=== PATIENT | male | born 1980 | race Caucasian/White ===

== ENCOUNTER 2020-01-23 19:36 | Observation (INO) | payer OTHER ==
[2020-01-23] MEDS ORDERED: ASPIRIN 81 MG CHEWABLE TABLET ONE (20:09)
[2020-01-23 20:10] LABS: Protime INR 0.99
[2020-01-23] MEDS ORDERED: NITROGLYCERIN 0.4 MG/TAB SL ONE (20:10)
[2020-01-23 20:13] LABS: Absolute Lymphocytes (CBC) 2.8 K/uL (0.7-4.9); Basophils % 0.5 % (0-1.3); Hematocrit 48.7 % (39.6-49.0); Lymphocytes % 25.6 % (15.3-44.8); MPV 9.4 fL (7.6-11.3); RBC Red Blood Cell Count 5.57 M/uL (4.33-5.43)
--- NOTE | 2020-01-23 20:13 | RAD REPORT ---
EXAM DESCRIPTION: RAD - Chest Single View - 01/23/2020 8:06 pm CLINICAL HISTORY: CHEST PAIN Chest pain. COMPARISON: CHEST PA AND LAT 2 VIEW dated 06/09/2009; CHEST SINGLE VIEW dated 04/16/2005 FINDINGS: Portable technique limits examination quality. The lungs are grossly clear. The heart is normal in size. No displaced fractures. IMPRESSION: No acute intrathoracic process suspected.
[2020-01-23 20:26] LABS: ALT/SGPT 42 U/L (12-78); AST/SGOT 19 U/L (15-37); Alkaline Phosphatase 74 U/L (45-117); BUN Blood Urea Nitrogen 16 mg/dL (7-18); Bicarbonate 30 mmol/L (21-32); Bilirubin Direct 0.1 mg/dL (0-0.2); Bilirubin Total 0.3 mg/dL (0.2-1.0); Glucose Level 103 mg/dL (74-106); NT PRO-BNP 5 pg/mL (<125); Potassium 3.4 mmol/L (3.5-5.1); Protein, Total 8.4 g/dL (6.4-8.2); Sodium Level 137 mmol/L (136-145); Troponin (Emerg Dept Use Only) < 0.02 ng/mL (0.0-0.045)
--- NOTE | 2020-01-23 21:16 | ER ---
Nurse's Notes [facility] Name: Dash Echols Age: 39 yrs Sex: Male : 1980 Arrival Date: 01/23/2020 Time: 19:41 Bed 20 Private MD: Diagnosis: Chest pain, unspecified Presentation: 01/22 19:41 Chief complaint: Patient states: Radiating chest pain started 30 mins ago. Reports SOB ca1 with chest pains. 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 Coronavirus screen: Patient denies fever greater than 100.4F, cough, shortness of breath, or difficulty breathing. Proceed with normal triage process. Ebola Screen: Patient negative for fever greater than or equal to 101.5 degrees Fahrenheit, and additional compatible Ebola Virus Disease symptoms Patient denies exposure to infectious person. Patient denies travel to an Ebola-affected area in the 21 days before illness onset. No symptoms or risks identified at this time. Initial Sepsis Screen: Does the patient meet any 2 criteria? No. Patient's initial sepsis screen is negative. Does the patient have a suspected source of infection? No. Patient's initial sepsis screen is negative. Risk Assessment: Do you want to hurt yourself or someone else? Patient reports no desire to harm self or others. Onset of symptoms was January 23, 2020 at 19:10. 19:41 Method Of Arrival: Wheelchair ca1 19:41 Acuity: RONNELL 3 ca1 Historical: - Allergies: 19:46 No Known Allergies; ca1 - Home Meds: 19:46 Losartan-Potassium 100mg-25mg 1 tab [Active]; unknown anti cholesterol medication ca1 [Active]; - PMHx: 19:46 Hypertension; High Cholesterol; PE; Liver Laceration; Free Floating L lung; ca1 - PSHx: 19:46 Appendectomy; bilateral hip reconstruction; ca1 - Immunization history:: Adult Immunizations up to date, Flu vaccine is not up to date. - Social history:: Smoking status: Patient denies any tobacco usage or history of. Screenin:41 Abuse screen: Denies threats or abuse. Nutritional screening: No deficits noted. jb4 Tuberculosis screening: No symptoms or risk factors identified. Fall Risk None identified. Assessment: 19:41 General: Appears in no apparent distress. uncomfortable, Behavior is calm, cooperative, jb4 appropriate for age. Pain: Complains of pain in right breast Pain does not radiate. Pain currently is 2 out of 10 on a pain scale. Quality of pain is described as dull, Pain began 30 min ago. Neuro: Level of Consciousness is awake, alert, obeys commands, Oriented to person, place, time, situation. Cardiovascular: Patient's skin is warm and dry. Rhythm is sinus tachycardia. Respiratory: Airway is patent Respiratory effort is even, unlabored, Respiratory pattern is regular, symmetrical. GI: No signs and/or symptoms were reported involving the gastrointestinal system. : No signs and/or symptoms were reported regarding the genitourinary system. EENT: No signs and/or symptoms were reported regarding the EENT system. Derm: Skin is intact, Skin is pink, warm \T\ dry. Musculoskeletal: Circulation, motion, and sensation intact. Range of motion: intact in all extremities. 20:30 Reassessment: Patient appears in no apparent distress at this time. Patient and/or jb4 family updated on plan of care and expected duration. Pain level reassessed. Patient is alert, oriented x 3, equal unlabored respirations, skin warm/dry/pink. Patient states feeling better. 22:45 Reassessment: Patient appears in no apparent distress at this time. Patient and/or jb4 family updated on plan of care and expected duration. Pain level reassessed. Patient is alert, oriented x 3, equal unlabored respirations, skin warm/dry/pink. Pt rates pain is 1/10, denies chest pain at this time. 23:10 Reassessment: attempted to call report, instructed to wait for call back. jb4 23:38 Reassessment: Patient appears in no apparent distress at this time. Patient and/or jb4 family updated on plan of care and expected duration. Pain level reassessed. Patient is alert, oriented x 3, equal unlabored respirations, skin warm/dry/pink. Report called to CHILO Bolton. IV site is saline locked. No s/s of infiltration or phlebitis noted. Vital Signs: 19:41 BP 149 / 106; Pulse 106; Resp 19 S; Pulse Ox 100% on R/A; Weight 171.46 kg (R); Height ca1 5 ft. 9 in. (175.26 cm) (R); Pain 2/10; 19:41 Temp 97.6(TE); jb4 20:30 BP 130 / 94; Pulse 93; Resp 19; Pulse Ox 96% on R/A; jb4 22:45 BP 119 / 87; Pulse 80; Resp 21; Temp 97.6(TE); Pulse Ox 95% ; Pain 1/10; jb4 23:30 BP 123 / 75; Pulse 80; Resp 18; Pulse Ox 97% on R/A; jb4 19:41 Body Mass Index 55.82 (171.46 kg, 175.26 cm) ca1 ED Course: 19:41 Patient arrived in ED. do 19:41 Kali Hurtado PA is PHCP. jr8 19:41 Ramakrishna Loza MD is Attending Physician. jr8 19:41 Patient has correct armband on for positive identification. Placed in gown. Bed in low jb4 position. Call light in reach. Side rails up X 1. classroom monitor on. Pulse ox on. NIBP on. 19:41 Patient maintains SpO2 saturation greater than 95% on room air. jb4 19:43 Amado Kaur, CHILO is Primary Nurse. jb4 19:43 Triage completed. ca1 19:46 Arm band placed on right wrist. EKG completed in triage. Results shown to MD. ca1 20:03 Basic Metabolic Panel Sent. jb4 20:03 CBC with Diff Sent. jb4 20:03 LFT's Sent. jb4 20:03 Magnesium Sent. jb4 20:03 NT PRO-BNP Sent. jb4 20:03 PT-INR Sent. jb4 20:03 Troponin (emerg Dept Use Only) Sent. jb4 20:04 Inserted saline lock: 20 gauge in right antecubital area, using aseptic technique. dh4 20:07 XRAY Chest (1 view) In Process Unspecified. EDMS 20:[address] via stretcher. nj 20:55 CT completed. Patient tolerated procedure well. Patient moved back from CT. nj 20:56 CT Chest For PE Angio In Process Unspecified. EDMS 21:15 Roxanne Sweet MD is Hospitalizing Provider. jr8 23:11 No provider procedures requiring assistance completed. Patient admitted, IV remains in jb4 place. Administered Medications: 20:10 Drug: Aspirin Chewable Tablet 324 mg Route: PO; jb4 21:00 Follow up: Response: No adverse reaction jb4 20:10 Drug: Nitroglycerin 0.4 mg Route: Sublingual; jb4 21:00 Follow up: Response: No adverse reaction; Pain is decreased jb4 Outcome: 21:15 Decision to Hospitalize by Provider. eryn 23:30 Admitted to Tele accompanied by tech, via wheelchair, room 423, with chart, Report jb4 called to CHILO Bolton 23:30 Condition: stable 23:30 Discharge instructions given to patient, Instructed on the need for admit, Demonstrated understanding of instructions. 23:41 Patient left the ED. jb4 Signatures: Dispatcher [employer] EDMS Kali Hurtado PA PA jr8 Denise Chase James, RN RN jb4 Murtaza Woodruff Cheryl, RN RN [facility] Corrections: (The following items were deleted from the chart) 23:01 22:45 BP 119 / 87; Pulse 21bpm; Resp 80bpm; Pulse Ox 95%; Temp 97.6F Temporal; Pain jb4 11/09; jb4
--- NOTE | 2020-01-23 21:16 | EDPHYS ---
Physician Documentation [facility] Name: Dash Echols Age: 39 yrs Sex: Male : 1980 Arrival Date: 01/23/2020 Time: 19:41 Bed 20 Private MD: ED Physician Ramakrishna Loza HPI: 01/22 19:59 This 39 yrs old Male presents to ER via Wheelchair with complaints of Chest jr8 Pain. 19:59 The patient or guardian reports chest pain that is located primarily in the substernal jr8 area. Onset: acutely, today. The pain radiates to jaw. Associated signs and symptoms: Pertinent positives: shortness of breath. The chest pain is described as a heaviness, causing indigestion. Duration: The patient or guardian reports a single episode, that is still ongoing, but improving. Modifying factors: The symptoms are alleviated by nothing. the symptoms are aggravated by nothing. Severity of pain: At its worst the pain was moderate in the emergency department the pain has improved moderately. The patient has not experienced similar symptoms in the past. The patient has not recently seen a physician. Patient stated that he just finished work. Got home with and had sexual intercourse. Stated that he showered and then went to the kitchen. Has sudden severe indigestive like pain with pressure. Lasted for about an hour before letting up. Now pain 2 of 10. Denies having this before. Historical: - Allergies: 19:46 No Known Allergies; ca1 - Home Meds: 19:46 Losartan-Potassium 100mg-25mg 1 tab [Active]; unknown anti cholesterol medication ca1 [Active]; - PMHx: 19:46 Hypertension; High Cholesterol; PE; Liver Laceration; Free Floating L lung; ca1 - PSHx: 19:46 Appendectomy; bilateral hip reconstruction; ca1 - Immunization history:: Adult Immunizations up to date, Flu vaccine is not up to date. - Social history:: Smoking status: Patient denies any tobacco usage or history of. ROS: 19:59 Eyes: Negative for injury, pain, redness, and discharge, ENT: Negative for injury, jr8 pain, and discharge, Neck: Negative for injury, pain, and swelling, Abdomen/GI: Negative for abdominal pain, nausea, vomiting, diarrhea, and constipation, Back: Negative for injury and pain, MS/Extremity: Negative for injury and deformity, Skin: Negative for injury, rash, and discoloration, Neuro: Negative for headache, weakness, numbness, tingling, and seizure. 19:59 Cardiovascular: Positive for chest pain, Negative for edema, orthopnea, palpitations, paroxysmal nocturnal dyspnea. 19:59 Respiratory: Positive for shortness of breath. Exam: 19:59 Eyes: Pupils equal round and reactive to light, extra-ocular motions intact. Lids and jr8 lashes normal. Conjunctiva and sclera are non-icteric and not injected. Cornea within normal limits. Periorbital areas with no swelling, redness, or edema. ENT: Nares patent. No nasal discharge, no septal abnormalities noted. Tympanic membranes are normal and external auditory canals are clear. Oropharynx with no redness, swelling, or masses, exudates, or evidence of obstruction, uvula midline. Mucous membranes moist. Neck: Trachea midline, no thyromegaly or masses palpated, and no cervical lymphadenopathy. Supple, full range of motion without nuchal rigidity, or vertebral point tenderness. No Meningismus. Respiratory: Lungs have equal breath sounds bilaterally, clear to auscultation and percussion. No rales, rhonchi or wheezes noted. No increased work of breathing, no retractions or nasal flaring. Abdomen/GI: Soft, non-tender, with normal bowel sounds. No distension or tympany. No guarding or rebound. No evidence of tenderness throughout. Back: No spinal tenderness. No costovertebral tenderness. Full range of motion. Skin: Warm, dry with normal turgor. Normal color with no rashes, no lesions, and no evidence of cellulitis. MS/ Extremity: Pulses equal, no cyanosis. Neurovascular intact. Full, normal range of motion. Neuro: Awake and alert, GCS 15, oriented to person, place, time, and situation. Cranial nerves II-XII grossly intact. Motor strength 5/5 in all extremities. Sensory grossly intact. Cerebellar exam normal. Normal gait. 19:59 Cardiovascular: Rate: tachycardic, Rhythm: regular, Pulses: Pulses are 2+ in right radial artery and left radial artery. Heart sounds: normal, normal S1and S2, no S3 or S4, no murmur, no rub, no gallop, Edema: is not appreciated, JVD: is not appreciated. 19:59 ECG was reviewed by the Attending Physician. Vital Signs: 19:41 BP 149 / 106; Pulse 106; Resp 19 S; Pulse Ox 100% on R/A; Weight 171.46 kg (R); Height ca1 5 ft. 9 in. (175.26 cm) (R); Pain 2/10; 19:41 Temp 97.6(TE); jb4 20:30 BP 130 / 94; Pulse 93; Resp 19; Pulse Ox 96% on R/A; jb4 22:45 BP 119 / 87; Pulse 80; Resp 21; Temp 97.6(TE); Pulse Ox 95% ; Pain 1/10; jb4 23:30 BP 123 / 75; Pulse 80; Resp 18; Pulse Ox 97% on R/A; jb4 19:41 Body Mass Index 55.82 (171.46 kg, 175.26 cm) ca1 MDM: 19:41 Patient medically screened. jr8 19:42 Patient medically screened. jr8 21:14 The patient was given aspirin in the Emergency Department. Data reviewed: vital signs, 8 nurses notes, lab test result(s), EKG, radiologic studies, CT scan, plain films. Data interpreted: Pulse oximetry: on room air is 96 %. Interpretation: normal. Counseling: I had a detailed discussion with the patient and/or guardian regarding: the historical points, exam findings, and any diagnostic results supporting the discharge/admit diagnosis, lab results, radiology results, the need for further work-up and treatment in the hospital. Physician consultation: Roxanne Sweet MD was called at 21:15, was contacted at 21:15, regarding admission, to the telemetry unit. consult, patient's condition, and will see patient in inpatient room. 01/22 19:42 Order name: Basic Metabolic Panel; Complete Time: 20:29 01/22 19:42 Order name: CBC with Diff; Complete Time: 20:23 01/22 19:42 Order name: LFT's; Complete Time: 20:29 01/22 19:42 Order name: Magnesium; Complete Time: 20:01/22 19:42 Order name: NT PRO-BNP; Complete Time: 20:29 01/22 19:42 Order name: PT-INR; Complete Time: 20:23 01/22 19:42 Order name: Troponin (emerg Dept Use Only); Complete Time: 20:29 8 01/22 22:41 Order name: Basic Metabolic Panel [facility] 01/22 22:41 Order name: Basic Metabolic Panel [facility] 01/22 22:41 Order name: CBC with Automated Diff [facility] 01/22 22:41 Order name: CBC with Automated Diff [facility] 01/22 22:41 Order name: Troponin I [facility] 01/22 22:41 Order name: Troponin I [facility] 01/22 22:41 Order name: Troponin I [facility] 01/22 19:42 Order name: XRAY Chest (1 view); Complete Time: 20:23 8 01/22 19:42 Order name: EKG; Complete Time: 19:44 [facility] 01/22 19:42 Order name: Cardiac monitoring; Complete Time: 19:48 8 01/22 19:42 Order name: EKG - Nurse/Tech; Complete Time: 19:48 8 01/22 19:42 Order name: IV Saline Lock; Complete Time: 19:48 8 01/22 19:42 Order name: Labs collected and sent; Complete Time: 20:03 8 01/22 19:42 Order name: O2 Per Protocol; Complete Time: 19:48 8 01/22 19:42 Order name: O2 Sat Monitoring; Complete Time: 19:48 8 01/22 20:29 Order name: CT Chest For PE Angio; Complete Time: 21:34 8 01/22 22:41 Order name: CONS Physician Consult [facility] 01/22 22:41 Order name: Heart Healthy [facility] 01/22 22:41 Order name: Echo with Doppler [facility] 01/22 22:41 Order name: EKG Electrocardiogram [facility] 01/22 22:41 Order name: EKG Electrocardiogram [facility] EC:59 Rate is 101 beats/min. Rhythm is irregular, Sinus tachycardia. QRS [place] is Normal. [place] jr8 interval is normal at 168 msec. QRS interval is normal at 78 msec. QT interval is normal at 448 msec. No Q waves. T waves are Normal. No ST changes noted. Clinical impression: Sinus tachycardia and No evidence of ischemia. Interpreted by me. Reviewed by me. Administered Medications: 20:10 Drug: Aspirin Chewable Tablet 324 mg Route: PO; 4 21:00 Follow up: Response: No adverse reaction jb4 20:10 Drug: Nitroglycerin 0.4 mg Route: Sublingual; jb4 21:00 Follow up: Response: No adverse reaction; Pain is decreased jb4 Disposition: 01/23/20 21:15 Hospitalization ordered by Roxanne Sweet for Observation. Preliminary diagnosis is Chest pain, unspecified. - Bed requested for Telemetry/MedSurg (observation). - Status is Observation. jb4 - Condition is Stable. - Problem is new. - Symptoms have improved. Addendum: 01/25/2020 06:57 Co-signature as Attending Physician, Ramakrishna Loza MD I agree with the assessment and c beasley plan of care. Signatures: Dispatcher [employer] EDCA Ramakrishna Loza MD MD cha Roszak, Josh, PA PA jr8 Laney Brady RN RN tl1 Amado Kaur RN RN jb4 Glenny Huynh RN RN ca1 Corrections: (The following items were deleted from the chart) 01/22 22:42 21:15 Hospitalization Ordered by Roxanne Sweet MD for Observation. Preliminary tl1 diagnosis is Chest pain, unspecified. Bed requested for Telemetry/MedSurg (observation). Status is Observation. Condition is Stable. Problem is new. Symptoms have improved. jr8 23:41 22:42 01/23/2020 21:15 Hospitalization Ordered by Roxanne Sweet MD for Observation. jb4 Preliminary diagnosis is Chest pain, unspecified. Bed requested for Telemetry/MedSurg (observation). Status is Observation. Condition is Stable. Problem is new. Symptoms have improved. tl1
--- NOTE | 2020-01-23 21:19 | RAD REPORT ---
EXAM DESCRIPTION: CT - Chest For Pe Angio - 01/23/2020 8:56 pm CLINICAL HISTORY: Chest pain. CHEST PAIN COMPARISON: No comparisons TECHNIQUE: CT angiogram of the pulmonary arteries was performed with MIP. All CT scans are performed using dose optimization technique as appropriate and may include automated exposure control or mA/KV adjustment according to patient size. FINDINGS: No evidence of pulmonary thromboembolism. No acute aortic finding demonstrated. The lungs are clear. No significant pericardial or pleural fluid. No concerning bony finding. IMPRESSION: No evidence of pulmonary thromboembolism. No acute lung findings.
[2020-01-23] MEDS ORDERED: ACETAMINOPHEN 500 MG TAB PO PRN (22:29)
[2020-01-23] MEDS ORDERED: MORPHINE 4 MG/ML SYR IV PRN (22:29)
[2020-01-23] MEDS ORDERED: ALPRAZOLAM 0.25 MG TABLET PO PRN (22:29)
[2020-01-24 02:00] VITALS: BMI 57.2
[2020-01-24 04:33] LABS: Absolute Lymphocytes (CBC) 2.9 K/uL (0.7-4.9); Basophils % 0.6 % (0-1.3); Hematocrit 43.9 % (39.6-49.0); Lymphocytes % 32.2 % (15.3-44.8); MPV 9.8 fL (7.6-11.3); RBC Red Blood Cell Count 5.08 M/uL (4.33-5.43)
[2020-01-24 04:40] LABS: Potassium 3.5 mmol/L (3.5-5.1)
--- NOTE | 2020-01-24 07:27 | P.HP ---
Certification for Inpatient Patient admitted to: Observation With expected LOS: <2 Midnights Patient will require the following post-hospital care: None Practitioner: I am a practitioner with admitting privileges, knowledge of patient current condition, hospital course, and medical plan of care. Services: Services provided to patient in accordance with Admission requirements found in Title 42 Section 412.3 of the Code of Federal Regulations Patient History Date of Service: 01/23/20 Reason for admission: Chest pain rule out acute coronary syndrome History of Present Illness: Patient is a 39-year-old gentleman who came to the hospital with chest discomfort. Patient states that he had been with his sexually and afterwards he started having some chest discomfort. His pain was very severe and it lasted for 30-45 min. He has a strong family history. Patient is also morbidly obese. She has a BMI of greater than 50. His father had heart disease in his 30s. He has a brother with heart disease as well. Patient blood pressure was 150/110. He call some of his nursing friends so he came into the hospital. 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 His EKG and troponins have been negative. Will get Cardiology consultation for further evaluation. Allergies No Known Drug Allergies Allergy (Verified 01/24/20 00:29) Unknown Home Medications: Atorvastatin Calcium [Lipitor*] 10 mg PO DAILY 01/24/20 Ergocalciferol (Vitamin D2) [Vitamin D2] 1 cap PO SEECOM 01/24/20 Gabapentin 400 mg PO BID 01/24/20 Losartan/Hydrochlorothiazide [Losartan-Hctz 100-25 mg Tab] 1 tab PO DAILY Multivitamin [Multiple Vitamins] 1 tab PO SEECOM 01/24/20 - Past Medical/Surgical History Has patient received pneumonia vaccine in the past: No Diabetic: No -: HTN -: high cholesterol -: PE -: Liver laceration -: free floating left lung -: sciatica -: appendectomy -: bilateral hip reconstruction -: L shoulder reconstruction -: IVC filter / removal - Family History Father Medical History: Heart disease, Diabetes Notes: PAD Mother Medical History: Cancer - Social History Smoking Status: Former smoker Alcohol use: Yes CD- Drugs: No Caffeine use: Yes Place of Residence: Home Review of Systems 10-point ROS is otherwise unremarkable Physical Examination - Vital Signs Temperature: 97.0 F Blood Pressure: 112/73 Pulse: 81 Respirations: 18 Pulse Ox (%): 96 - Physical Exam General: Alert, In no apparent distress, Oriented x3 HEENT: Atraumatic, PERRLA, Mucous membr. moist/pink, EOMI, Sclerae nonicteric Neck: Supple, 2+ carotid pulse no bruit, No LAD, Without JVD or thyroid abnormality Respiratory: Clear to auscultation bilaterally, Normal air movement Cardiovascular: Regular rate/rhythm, Normal S1 S2, No murmurs Gastrointestinal: Normal bowel sounds, Soft and benign, Non-distended, No tenderness Musculoskeletal: No clubbing, No swelling, No tenderness Integumentary: No rashes Neurological: Normal gait, Normal speech, Normal strength at 5/5 x4 extr, Normal tone, Sensation intact, Cranial nerves 3-12 intact, Normal affect Lymphatics: No axilla or inguinal lymphadenopathy - Studies Laboratory Data (last 24 hrs) 01/23/20 20:00: PT 11.7, INR 0.99 01/23/20 20:00: WBC 10.9, Hgb 16.1, Hct 48.7, Plt Count 217 01/23/20 20:00: Sodium 137, Potassium 3.4 L, BUN 16, Creatinine 1.34 H, Glucose 103, Magnesium 2.0, Total Bilirubin 0.3, AST 19, ALT 42, Alkaline Phosphatase 74 Assessment & Plan - Problems (Diagnosis) (1) Chest pain, rule out acute myocardial infarction Current Visit: Yes Status: Acute (2) Body mass index (BMI) greater than 50 Current Visit: Yes Status: Acute (3) Hypertension, malignant Current Visit: Yes Status: Acute (4) Dyslipidemia Current Visit: Yes Status: Acute - Plan 1. Serial troponins and EKG 2. Cardiology consultation 3. Echocardiogram and stress test-stress test will probably need to be done outpatient as the weight limit is roughly 350 lb 4. Anti-platelet therapy, anti coagulation, beta-marie, statin, and O2 as needed 5. IV morphine for pain 6. Nitro p.r.n. 7. Patient will need outpatient sleep study as well; 8. GI and DVT prophylaxis Discharge Plan: Home Plan to discharge in: 24 Hours - Advance Directives Does patient have a Living Will: No Does patient have a Durable POA for Healthcare: No - Code Status/Comfort Care Code Status Assessed: Yes Code Status: Full Code Critical Care: No Time Spent Managing PTS Care (In Minutes): 40
--- NOTE | 2020-01-24 07:35 | P.DS ---
Discharge Date: 01/24/20 Disposition: ROUTINE DISCHARGE Discharge Condition: GOOD Reason for Admission: Chest pain rule out acute coronary syndrome Consultations: Circus Rider - Problems (1) Chest pain, rule out acute myocardial infarction Status: Acute (2) Body mass index (BMI) greater than 50 Status: Acute (3) Hypertension, malignant Status: Acute (4) Dyslipidemia Status: Acute Brief History of Present Illness: Patient is a 39-year-old gentleman who came to the hospital with chest discomfort. Patient states that he had been with his sexually and afterwards he started having some chest discomfort. His pain was very severe and it lasted for 30-45 min. He has a strong family history. Patient is also morbidly obese. She has a BMI of greater than 50. His father had heart disease in his 30s. He has a brother with heart disease as well. Patient blood pressure was 150/110. He call some of his nursing friends so he came into the hospital. 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 His EKG and troponins have been negative. Will get Cardiology consultation for further evaluation. Hospital Course: Patient workup was essentially negative. At this time, patient is stable for discharge home. Vital Signs/Physical Exam: Temp Pulse Resp BP Pulse Ox 97.0 F 81 18 112/73 96 01/24/20 07:29 01/24/20 07:29 01/24/20 07:29 01/24/20 07:29 01/24/20 07:29 General: Alert, In no apparent distress, Oriented x3 Laboratory Data at Discharge: WBC 8.9 K/uL (4.3-10.9) D 01/24/20 04:14 Hgb 14.6 g/dL (13.6-17.9) 01/24/20 04:14 Hct 43.9 % (39.6-49.0) 01/24/20 04:14 Plt Count 200 K/uL (152-406) 01/24/20 04:14 PT 11.7 SECONDS (9.5-12.5) 01/23/20 20:00 INR 0.99 01/23/20 20:00 Sodium 140 mmol/L (136-145) 01/24/20 04:14 Potassium 3.5 mmol/L (3.5-5.1) 01/24/20 04:14 BUN 18 mg/dL (7-18) 01/24/20 04:14 Creatinine 1.09 mg/dL (0.55-1.3) 01/24/20 04:14 Glucose 103 mg/dL (74-106) 01/24/20 04:14 Magnesium 2.0 mg/dL (1.8-2.4) 01/23/20 20:00 Total Bilirubin 0.3 mg/dL (0.2-1.0) 01/23/20 20:00 AST 19 U/L (15-37) 01/23/20 20:00 ALT 42 U/L (12-78) 01/23/20 20:00 Alkaline Phosphatase 74 U/L (45-117) 01/23/20 20:00 Triglycerides Cancelled 01/24/20 06:00 Cholesterol Cancelled 01/24/20 06:00 HDL Cholesterol Cancelled 01/24/20 06:00 Cholesterol/HDL Ratio Cancelled 01/24/20 06:00 Home Medications: Atorvastatin Calcium [Lipitor*] 10 mg PO DAILY 01/24/20 Ergocalciferol (Vitamin D2) [Vitamin D2] 1 cap PO SEECOM 01/24/20 Gabapentin 400 mg PO BID 01/24/20 Losartan/Hydrochlorothiazide [Losartan-Hctz 100-25 mg Tab] 1 tab PO DAILY Multivitamin [Multiple Vitamins] 1 tab PO SEECOM 01/24/20 Patient Discharge Instructions: OK TO DC IV AND DC HOME if okay with Cardiology. FOLLOW-UP WITH PRIMARY CARE PROVIDER IN 1-2 WEEKS. FOLLOW-UP WITH CARDIOLOGY IN 1-2 WEEKS; patient would need outpatient stress test. RETURN TO THE ER IF symptoms worsen. CALL or TEXT DR. ALVARADO AT [phone] IF ANY QUESTIONS REGARDING HOSPITAL STAY. PLEASE CALL THE FLOOR AT [phone] IF ANY MEDICATION OR NURSING QUESTIONS. Diet: AHA Activity: Fall precautions Followup: Eamon Plunkett MD [ACTIVE - CAN ADMIT] - Alesia Grubbs RN [OUTSIDE PHYSICIAN] - Time spent managing pt's care (in minutes): 20
[2020-01-24] MEDS ORDERED: ASPIRIN EC 81 MG TAB PO SCH (09:00)
[2020-01-24] MEDS ORDERED: ENOXAPARIN 40 MG/0.4 ML SQ SCH (09:00)
[2020-01-24] MEDS ORDERED: METOPROLOL TAR 50 MG TAB PO SCH (09:00)
[2020-01-24 09:35] VITALS: O2SAT 98
--- NOTE | 2020-01-24 10:03 | EKG ---
Test Date: 2020-01-24 Test Time: 09:02:54 End Polisher: REYES MEASUREMENT RESULTS: Intervals: Rate: 85 CT: 178 QRSD: 86 QT: 374 QTc: 445 [place]: P: 2 CT: 178 QRS: 31 T: 33 INTERPRETIVE STATEMENTS: Normal sinus rhythm Low voltage QRS Borderline ECG Compared to ECG 01/23/2020 19:44:59 Low QRS voltage now present Sinus tachycardia no longer present Electronically Signed On 01-24-20 10:02:48 CDT by Eamon Plunkett
--- NOTE | 2020-01-24 10:04 | EKG ---
Test Date: 2020-01-23 Test Time: 19:44:59 Research Specialist: INESSA MEASUREMENT RESULTS: Intervals: Rate: 101 [place]: 168 QRSD: 78 QT: 346 QTc: 448 [place]: P: 22 [place]: 168 QRS: -3 T: 25 INTERPRETIVE STATEMENTS: Sinus tachycardia Otherwise normal ECG No previous ECG available for comparison Electronically Signed On 01-24-20 10:02:56 CDT by Eamon Plunkett
--- NOTE | 2020-01-24 10:38 | ECHO ---
HEIGHT: 5 ft 9 in WEIGHT: 388 lb 0 oz DATE OF STUDY: 01/24/[address]: Roxanne Sweet MD 2-DIMENSIONAL: YES M.MODE: YES DOPPLER: YES COLOR FLOW: YES TDS: NO PORTABLE: NO DEFINITY: NO BUBBLE STUDY: NO DIAGNOSIS: CHEST PAIN CARDIAC HISTORY: CATHERIZATION: NO SURGERY: NO PROSTHETIC VALVE: NO PACEMAKER: NO MEASUREMENTS (cm) DIASTOLIC (NORMALS) SYSTOLIC (NORMALS) IVSd 1.0 (0.6-1.2) LA Diam 3.7 (1.9-4.0) LVEF 65% LVIDd 4.2 (3.5-5.7) LVIDs 2.7 (2.0-3.5) %FS 35% LVPWd 1.2 (0.6-1.2) Ao Diam 3.0 (2.0-3.7) 2 DIMENSIONAL ASSESSMENT: RIGHT ATRIUM: NORMAL LEFT ATRIUM: NORMAL RIGHT VENTRICLE: NORMAL LEFT VENTRICLE: NORMAL TRICUSPID VALVE: NORMAL MITRAL VALVE: NORMAL PULMONIC VALVE: NORMAL AORTIC VALVE: NORMAL PERICARDIAL EFFUSION: NONE AORTIC ROOT: NORMAL LEFT VENTRICULAR WALL MOTION: NORMAL. DOPPLER/COLOR FLOW: NORMAL. COMMENTS: NORMAL 2D ECHO WITH DOPPLER. NO WALL MOTION ABNORMALITY. NO EFFUSION. TECHNOLOGIST: NATHALIE MEIER
[2020-01-24 12:34] VITALS: BP 110/62; TEMP 97.4
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
== END 2020-01-24 12:40 | disposition home or self-care (01) ==
LOC: ER 19:36 → ERHOLD 23:02 → 4TH 23:26
PROVIDERS: ADMIT Hospitalist; ATTEND Hospitalist
DX: R07.89 Other chest pain (principal); I10 Essential (primary) hypertension; E78.5 Hyperlipidemia, unspecified; R00.0 Tachycardia, unspecified; Z82.49 Family history of ischemic heart disease and other diseases of the circulatory system; Z79.899 Other long term (current) drug therapy; Z87.891 Personal history of nicotine dependence; Z86.711 Personal history of pulmonary embolism; E66.9 Obesity, unspecified; Z68.43 Body mass index [BMI] 50.0-59.9, adult
CPT/HCPCS: 93005 ×2; 93306; 85025 ×2; 80048 ×2; 36415; 83735; 85610; 80061; 80076; 84484 ×3; 83880; 71275; 71045; 99285; Q9967; J1650; G0378 ×2

== ENCOUNTER 2020-12-17 18:55 | Emergency (ER) | payer OTHER ==
--- NOTE | 2020-12-17 20:23 | RAD REPORT ---
EXAM DESCRIPTION: RAD - Hip Left 2 View - 12/17/2020 7:54 pm CLINICAL HISTORY: PAIN COMPARISON: No comparisons FINDINGS: AP and frogleg views of the left hip were obtained. There is no fracture or dislocation. Slight flattening of the femoral head seen in the region of the fovea. No definitive evidence for avascular necrosis. No joint space narrowing or joint effusion iden tified. No significant change along the acetabular rim. No soft tissue abnormality. IMPRESSION: No fracture or dislocation at the hip joint. Flattening of the femoral head could indicate early AVN.
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
[2020-12-17] MEDS ORDERED: dexAMETHasone 10 MG/ML VIAL ONE (21:56)
[2020-12-17] MEDS ORDERED: MEPERIDINE HCL 50 MG/ML ONE (22:01)
[2020-12-17 22:15] VITALS: BP 137/98; TEMP 97; O2SAT 99
--- NOTE | 2021-01-08 12:45 | RAD REPORT ---
CLINICAL HISTORY: PAIN COMPARISON: No comparisons FINDINGS: AP and frogleg views of the left hip were obtained. There is no fracture or dislocation. Slight flattening of the femoral head seen in the region of the fovea. No definitive evidence for avascular necrosis. No joint space narrowing or joint effusion identified. No significant change along the acetabular rim. No soft tissue abnormality. IMPRESSION: No fracture or dislocation at the hip joint. Flattening of the femoral head could indicate early AVN.
== END 2020-12-17 22:04 | disposition home or self-care (01) ==
LOC: ER 18:55
DX: M25.552 Pain in left hip (principal)
CPT/HCPCS: 72170; 73502; 96372; 99283; J1100; J2175